=== PATIENT | male | born 1955 | race Caucasian/White ===

== ENCOUNTER 2025-04-13 12:09 | Inpatient (IN) | payer OTHER ==
[2025-04-13 13:01] LABS: #Basophils 0.04 10x3/uL (0.0-0.2); #Eosinophils 0.54 10x3/uL (0.0-0.7); #Monocytes 0.89 10x3/uL (0.11-0.59); #Neutrophils 2.96 10x3/uL (1.40-6.50); %Basophils 0.6 % (0.0-1.0); %Eosinophils 8.3 % (0.0-10.0); %Lymphocytes 31.6 % (21.0-51.0); %Monocytes 13.7 % (0.0-10.0); %Neutrophils 45.3 % (42.0-75.0); Hematocrit 42.3 % (42.0-52.0); Hemoglobin 13.9 g/dL (14.0-18.0); Mean Corpuscular Hemoglobin 29.4 pg (27.0-31.0); Mean Corpuscular Volume 89.4 fL (78.0-98.0); Platelet Count 293 10x3/uL (130-400); Red Blood Cell (RBC) Count 4.73 mill/uL (4.70-6.10); White Blood Cell (WBC) Count 6.52 10x3/uL (4.8-10.8)
[2025-04-13 13:28] LABS: ALT (SGPT) 18 U/L (Less than 45); AST (SGOT) 22 U/L (11-34); Albumin 3.7 g/dL (3.1-4.5); Alkaline Phosphatase 86 U/L (40-110); Anion Gap 14 mmol/L (10-20); BUN (Urea Nitrogen) 17 mg/dL (8.4-25.7); Bilirubin, Total 0.2 mg/dL (0.3-1.2); Calc. Creatinine Clearance 0 mL/min (70-130); Calcium 8.5 mg/dL (7.8-10.44); Carbon Dioxide 21 mmol/L (23-31); Chloride 107 mmol/L (98-107); Globulin 3.4 g/dL (2.4-3.5); Glucose 103 mg/dL (80-115); Potassium 4.5 mmol/L (3.5-5.1); Sodium 137 mmol/L (136-145)
[2025-04-13 13:31] LABS: Troponin I 0.023 ng/mL (< 0.028)
[2025-04-13 15:16] LABS: Troponin I 0.021 ng/mL (< 0.028)
[2025-04-13 17:55] LABS: Bacteria/HPF None Seen HPF (None Seen); CAUTI Indications for Culture Alt mental st,lethar; Glucose, Urine (Dipstick) Normal (Negative); Leukocyte Negative Leu/uL (Negative); Protein, Urine (Dipstick) Negative (Neg-Trace); RBC/HPF None Seen HPF (0-3); Specific Gravity, Urine 1.014 (1.002-1.036); WBC/HPF None Seen HPF (0-3)
[2025-04-13 17:56] LABS: Urine Culture Reflex No No
[2025-04-13] MEDS ORDERED: Calcium Carbonate 500 MG ChewTAB PO PRN (21:28)
[2025-04-13] MEDS ORDERED: Ondansetron PF 4 MG/2 ML Vial IVP PRN (21:28)
[2025-04-13] MEDS ORDERED: Senokot S 8.6-50 MG TAB PO PRN (21:28)
[2025-04-13 23:07] LABS: Troponin I 0.030 ng/mL (< 0.028)
[2025-04-14 01:08] LABS: Troponin I 0.021 ng/mL (< 0.028)
[2025-04-14 04:09] LABS: #Basophils 0.05 10x3/uL (0.0-0.2); #Eosinophils 0.45 10x3/uL (0.0-0.7); #Monocytes 1.15 10x3/uL (0.11-0.59); #Neutrophils 3.86 10x3/uL (1.40-6.50); %Basophils 0.6 % (0.0-1.0); %Eosinophils 5.8 % (0.0-10.0); %Lymphocytes 29.2 % (21.0-51.0); %Monocytes 14.7 % (0.0-10.0); %Neutrophils 49.3 % (42.0-75.0); Hematocrit 43.8 % (42.0-52.0); Hemoglobin 13.9 g/dL (14.0-18.0); Mean Corpuscular Hemoglobin 29.0 pg (27.0-31.0); Mean Corpuscular Volume 91.3 fL (78.0-98.0); Platelet Count 268 10x3/uL (130-400); Red Blood Cell (RBC) Count 4.80 mill/uL (4.70-6.10); White Blood Cell (WBC) Count 7.82 10x3/uL (4.8-10.8)
[2025-04-14 04:29] LABS: ALT (SGPT) 18 U/L (Less than 45); AST (SGOT) 22 U/L (11-34); Albumin 3.5 g/dL (3.1-4.5); Alkaline Phosphatase 83 U/L (40-110); Anion Gap 13 mmol/L (10-20); BUN (Urea Nitrogen) 19 mg/dL (8.4-25.7); Bilirubin, Total 0.3 mg/dL (0.3-1.2); Calc. Creatinine Clearance 81 mL/min (70-130); Calcium 8.8 mg/dL (7.8-10.44); Carbon Dioxide 23 mmol/L (23-31); Cardiac Risk 5.2 (Less than 4.5); Chloride 110 mmol/L (98-107); Cholesterol 155 mg/dl (< 200 Desired); Globulin 3.3 g/dL (2.4-3.5); Glucose 94 mg/dL (80-115); HDL Cholesterol 30 mg/dL (>60 Neg Risk); LDL Cholesterol, Calculated 99 mg/dL; Magnesium 2.1 mg/dL (1.6-2.6); Potassium 4.3 mmol/L (3.5-5.1); Sodium 142 mmol/L (136-145); Triglycerides 132 mg/dL (Less than 150)
[2025-04-14 04:32] LABS: Troponin I 0.027 ng/mL (< 0.028)
[2025-04-14] MEDS ORDERED: Enoxaparin 40 MG (0.4 mL) SYRINGE ONE (08:35)
[2025-04-14] MEDS ORDERED: Aspirin Chewable 81 MG TAB ONE (08:35)
[2025-04-14] MEDS: Enoxaparin 40 MG (0.4 mL) SYRINGE SC SCH (08:42)
[2025-04-14] MEDS: Aspirin 81 mg Enteric Coated Tablet PO SCH (08:42)
[2025-04-14] MEDS ORDERED: Albuterol 200 PUFF INH INH PRN (08:46)
[2025-04-14] MEDS ORDERED: Carvedilol 3.125 MG TAB PO SCH (09:00)
[2025-04-14] MEDS ORDERED: Carvedilol 25 MG TAB ONE (09:20)
[2025-04-14] MEDS: Carvedilol 6.25 MG TAB PO SCH (09:51)
[2025-04-14 12:59] VITALS: BMI 25.3
[2025-04-14] MEDS: Acetaminophen 325 MG TAB PO PRN (16:59)
[2025-04-14] MEDS: Enoxaparin 80 MG (0.8 mL) SYRINGE SC SCH (20:20)
[2025-04-14] MEDS ORDERED: Non-Formulary Item 1 EACH (Rivaroxaban [Xarelto] 20 MG Tablet) PO SCH (21:00)
[2025-04-15 09:13] LABS: #Basophils 0.05 10x3/uL (0.0-0.2); #Eosinophils 0.35 10x3/uL (0.0-0.7); #Monocytes 0.65 10x3/uL (0.11-0.59); #Neutrophils 3.12 10x3/uL (1.40-6.50); %Basophils 0.8 % (0.0-1.0); %Eosinophils 5.7 % (0.0-10.0); %Lymphocytes 31.9 % (21.0-51.0); %Monocytes 10.6 % (0.0-10.0); %Neutrophils 50.7 % (42.0-75.0); Hematocrit 47.3 % (42.0-52.0); Hemoglobin 15.3 g/dL (14.0-18.0); Mean Corpuscular Hemoglobin 28.8 pg (27.0-31.0); Mean Corpuscular Volume 89.1 fL (78.0-98.0); Platelet Count 272 10x3/uL (130-400); Red Blood Cell (RBC) Count 5.31 mill/uL (4.70-6.10); White Blood Cell (WBC) Count 6.15 10x3/uL (4.8-10.8)
[2025-04-15 09:31] LABS: Anion Gap 14 mmol/L (10-20); BUN (Urea Nitrogen) 17 mg/dL (8.4-25.7); Calc. Creatinine Clearance 81 mL/min (70-130); Calcium 9.0 mg/dL (7.8-10.44); Carbon Dioxide 21 mmol/L (23-31); Chloride 108 mmol/L (98-107); Glucose 112 mg/dL (80-115); Potassium 4.4 mmol/L (3.5-5.1); Sodium 139 mmol/L (136-145)
[2025-04-15] MEDS: Carvedilol 25 MG TAB PO SCH (16:24)
[2025-04-16] MEDS: Digoxin 0.5 MG/2 ML AMP SLOW IVP SCH (12:03)
[2025-04-16 13:24] LABS: Anion Gap 16 mmol/L (10-20); BUN (Urea Nitrogen) 20 mg/dL (8.4-25.7); Calc. Creatinine Clearance 79 mL/min (70-130); Calcium 7.9 mg/dL (7.8-10.44); Carbon Dioxide 20 mmol/L (23-31); Chloride 108 mmol/L (98-107); Glucose 118 mg/dL (80-115); Potassium 4.8 mmol/L (3.5-5.1); Sodium 139 mmol/L (136-145)
[2025-04-16 13:30] LABS: Troponin I 0.036 ng/mL (< 0.028)
[2025-04-16] MEDS ORDERED: Digoxin 0.5 MG/2 ML AMP SLOW IVP SCH (14:00)
[2025-04-16 14:10] LABS: #Basophils 0.04 10x3/uL (0.0-0.2); #Eosinophils 0.46 10x3/uL (0.0-0.7); #Monocytes 0.94 10x3/uL (0.11-0.59); #Neutrophils 3.01 10x3/uL (1.40-6.50); %Basophils 0.6 % (0.0-1.0); %Eosinophils 6.5 % (0.0-10.0); %Lymphocytes 36.7 % (21.0-51.0); %Monocytes 13.3 % (0.0-10.0); %Neutrophils 42.6 % (42.0-75.0); Hematocrit 44.4 % (42.0-52.0); Hemoglobin 14.3 g/dL (14.0-18.0); Mean Corpuscular Hemoglobin 28.5 pg (27.0-31.0); Mean Corpuscular Volume 88.4 fL (78.0-98.0); Platelet Adequacy Comment Platelets Decreased; Platelet Count 95 10x3/uL (130-400); RBC Morphology Within Normal Limits; Red Blood Cell (RBC) Count 5.02 mill/uL (4.70-6.10); White Blood Cell (WBC) Count 7.06 10x3/uL (4.8-10.8)
[2025-04-16] MEDS ORDERED: Digoxin 0.25 MG TAB PO SCH (16:00)
[2025-04-16] MEDS: Metoprolol Succinate XL 50 MG ER.TAB PO SCH (20:49)
[2025-04-16] MEDS ORDERED: Metoprolol Succinate XL 100 MG ER.TAB PO SCH (21:00)
[2025-04-17 05:06] LABS: #Basophils 0.04 10x3/uL (0.0-0.2); #Eosinophils 0.34 10x3/uL (0.0-0.7); #Monocytes 1.11 10x3/uL (0.11-0.59); #Neutrophils 4.04 10x3/uL (1.40-6.50); %Basophils 0.5 % (0.0-1.0); %Eosinophils 4.4 % (0.0-10.0); %Lymphocytes 27.8 % (21.0-51.0); %Monocytes 14.4 % (0.0-10.0); %Neutrophils 52.5 % (42.0-75.0); Hematocrit 42.9 % (42.0-52.0); Hemoglobin 13.5 g/dL (14.0-18.0); Mean Corpuscular Hemoglobin 28.8 pg (27.0-31.0); Mean Corpuscular Volume 91.5 fL (78.0-98.0); Platelet Count 255 10x3/uL (130-400); Red Blood Cell (RBC) Count 4.69 mill/uL (4.70-6.10); White Blood Cell (WBC) Count 7.70 10x3/uL (4.8-10.8)
[2025-04-17] MEDS: Digoxin 0.25 MG TAB PO SCH (08:02)
[2025-04-18 08:32] VITALS: TEMP 97.5
[2025-04-18 12:49] VITALS: BP 122/72
== END 2025-04-18 13:00 | DRG 310 ==
LOC: SUATTDRO 12:09 → EEVIPCON 12:09 → ERS 12:09 → ERHOLD 20:36 → OBS 04-14 10:52 → OBSVTOIN 04-15 15:33
PROVIDERS: ADMIT Internal Medicine; ATTEND Internal Medicine
DX: I48.11 Longstanding persistent atrial fibrillation (principal); I10 Essential (primary) hypertension; E78.5 Hyperlipidemia, unspecified; I95.9 Hypotension, unspecified; G47.33 Obstructive sleep apnea (adult) (pediatric); I25.10 Atherosclerotic heart disease of native coronary artery without angina pectoris; Z88.1 Allergy status to other antibiotic agents; I25.2 Old myocardial infarction
CPT/HCPCS: 36415; 36416; 71045; 80048; 80053; 80061; 81001; 83036; 83735; 83880; 84484; 85025; 93005; 93010; 94760; 96372; G0378; J1160; J1650; J7030